=== PATIENT | male | born 1935 | race Caucasian/White ===

== ENCOUNTER → 2016-08-14 | Outpatient (CLI) | payer OTHER ==
[2016-08-14 15:28] LABS: HEMOGLOBIN A1C 6.39 % (4.2-6.0); MEAN BLOOD GLUCOSE (CALC) 126.787 mg/dL
[2016-08-14 15:29] LABS: BILIRUBIN,TOTAL 0.6 mg/dL (0.3-1.2); BUN/CREATININE RATIO 28.75 (6-20); CALCIUM 9.5 mg/dL (8.7-10.7); CREATININE 0.8 mg/dL (0.70-1.50); POTASSIUM 4.3 meq/L (3.8-5.2); TOTAL PROTEIN 6.7 g/dL (6.1-8.0)
[2016-08-14 17:41] LABS: FREE T4 (FREE THYROXINE) 1.2 ng/dL (0.93-1.71)
== END ==
LOC: LAB 08:18
PROVIDERS: ATTEND Physician Assistant Medical
DX: E11.9 Type 2 diabetes mellitus without complications (principal); E03.9 Hypothyroidism, unspecified; E78.5 Hyperlipidemia, unspecified; I10 Essential (primary) hypertension
CPT/HCPCS: 80053; 80061; 83036; 84439; 84443

== ENCOUNTER → 2016-12-03 | Outpatient (CLI) | payer OTHER ==
[2016-12-03 14:44] LABS: BASOPHILS # (AUTO) 0.04 10*3/UL; BASOPHILS % (AUTO) 0.6 % (0-1); EOSINOPHILS # (AUTO) 0.14 10*3/UL; EOSINOPHILS % (AUTO) 2.1 % (0-8); HEMATOCRIT 37.3 % (42.0-52.0); HEMOGLOBIN 11.8 g/dL (14.0-18.0); LYMPHOCYTES # (AUTO) 1.61 10*3/uL; MEAN CORPUSCULAR HEMOGLOBIN 30.3 PG (27-31); MEAN CORPUSCULAR HGB CONC 31.6 g/dL (33-37); MEAN CORPUSCULAR VOLUME 95.9 FL (80-90); MEAN PLATELET VOLUME 9.1 FL (7.4-12.2); MONOCYTES # (AUTO) 0.67 10*3/UL (0.3-0.8); MONOCYTES % (AUTO) 10.2 % (5-15); NEUTROPHILS # (AUTO) 4.08 10*3/UL; NEUTROPHILS % (AUTO) 62.3 % (50-80); RED BLOOD COUNT 3.89 10^6/uL (4.70-6.10)
[2016-12-03 14:45] LABS: PLATELET MORPHOLOGY COMMENT NORMAL MORPHOLOGY (NORM); RBC MORPHOLOGY COMMENT NORMAL MORPHOLOGY (NORM); WBC MORPHOLOGY COMMENT NORMAL MORPHOLOGY (NORM)
[2016-12-03 14:49] LABS: BUN/CREATININE RATIO 26.25 (6-20); CALCIUM 9.2 mg/dL (8.7-10.7); SERUM ALBUMIN 3.7 g/dL (3.5-4.8)
[2016-12-03 14:54] LABS: HEMOGLOBIN A1C 6.56 % (4.2-6.0)
[2016-12-03 15:51] LABS: CHOL/HDL RATIO 4.32 RATIO (0-4.0); LDL CHOLESTEROL,CALCULATED 74.4 mg/dL
== END ==
LOC: LAB 09:27
PROVIDERS: ATTEND Physician Assistant Medical
DX: E11.9 Type 2 diabetes mellitus without complications (principal); E03.9 Hypothyroidism, unspecified; E78.5 Hyperlipidemia, unspecified
CPT/HCPCS: 80053; 80061; 83036; 84443; 85025

== ENCOUNTER → 2017-01-30 | Outpatient (CLI) | payer OTHER | LOC: MMPC 10:00 | PROVIDERS: ATTEND Podiatrist Foot & Ankle Surgery | DX: L60.3 Nail dystrophy (principal); R60.1 Generalized edema; I73.9 Peripheral vascular disease, unspecified; E11.40 Type 2 diabetes mellitus with diabetic neuropathy, unspecified; Z79.01 Long term (current) use of anticoagulants | CPT/HCPCS: 11721 ×2; G0463 ==